=== PATIENT | female | born 1970 | race Caucasian/White ===

== ENCOUNTER 2021-05-24 18:35 | Emergency (ER) | payer OTHER ==
[~2021-05-24] VITALS: Ht 167.6 cm; Wt 90.7 kg
[~2021-05-24 18:35] MED LIST: AZITHROMYCIN500 MG PO; GABAPENTIN600 M1 PO; LEVAQUIN 500 M500 M2 PO; MINIVELLE1 EAC1 PO; OMEPRAZOLE 20 M20 M1 PO; ONDANSETRON HCL4 M2 PO; TESSALON PERLE100 M1 PO; VENTOLIN HFA 1818 GM INH
[2021-05-24 18:41] VITALS: BP 138/94
[2021-05-24] MEDS ORDERED: POLYMYXIN B/TMP10 ML RT. EYE ×2 (19:06→19:11)
== END 2021-05-24 19:14 | disposition home or self-care (01) ==
LOC: ER 18:35
DX: H10.31 Unspecified acute conjunctivitis, right eye (principal); Z90.710 Acquired absence of both cervix and uterus; Z79.899 Other long term (current) drug therapy